=== PATIENT | female | born 1990 | race Caucasian/White ===

== ENCOUNTER 2017-09-02 15:40 | Observation (INO) | payer OTHER ==
[~2017-09-02] VITALS: Ht 160 cm; Wt 92.5 kg
[2017-09-02 15:56] VITALS: BP 130/88
[2017-09-02 17:14] LABS: GLUCOMETER DEV NAME(LOC) 4S 8; GLUCOSE,POINT OF CARE 98 MG/DL (70-110)
[2017-09-02 18:21] VITALS: BP 130/88
== END 2017-09-02 17:35 | disposition home or self-care (01) ==
LOC: 4S 15:40
PROVIDERS: ADMIT Obstetrics & Gynecology; ATTEND Obstetrics & Gynecology
DX: O62.9 Abnormality of forces of labor, unspecified (principal); Z3A.38 38 weeks gestation of pregnancy
CPT/HCPCS: 59025; 82962; G0378

== ENCOUNTER 2017-09-13 12:15 | Inpatient (IN) | payer OTHER ==
[~2017-09-13] VITALS: Ht 160 cm; Wt 93.4 kg
[2017-09-13] MEDS ORDERED: RINGERS SOLUTION,LACTATED 1,000 ML IV PRN (12:33)
[2017-09-13] MEDS ORDERED: OXYTOCIN 30 UNITS/LACT RINGERS 500 ML IV ONE (12:33)
[2017-09-13 12:38] VITALS: BP 132/85
[2017-09-13] MEDS ORDERED: DINOPROSTONE 10 MG VAGINAL SUPPOSITORY VG ONE (12:45)
[2017-09-13] MEDS ORDERED: CITRIC ACID/SODIUM CITRATE 30 ML SOLUTION UDCUP PO PRN (12:45)
[2017-09-13] MEDS ORDERED: METOCLOPRAMIDE HCL 5 MG/ML 2 ML VIAL IVP PRN (12:45)
[2017-09-13 12:56] LABS: BASOPHILS % (AUTO) 0.2 % (0.0-2.0); EOSINOPHILS % (AUTO) 0.4 % (1.0-6.0); HEMATOCRIT 31.5 % (36-46); HEMOGLOBIN 10.9 g/dL (12.0-16.0); LYMPHOCYTES # (AUTO) 1.8 K/uL (1.0-4.8); LYMPHOCYTES % (AUTO) 24.4 % (22.0-44.0); MEAN CORPUSCULAR HEMOGLOBIN 27.3 pg (26.0-34.0); MEAN CORPUSCULAR HGB CONC 34.7 G/dL (31.0-37.0); MEAN CORPUSCULAR VOLUME 79 fL (80-100); MONOCYTES # (AUTO) 0.5 K/uL (0.1-1.0); MONOCYTES % (AUTO) 6.3 % (2.0-9.0); NEUTROPHILS # (AUTO) 5.2 K/uL (1.8-7.7); NEUTROPHILS % (AUTO) 68.7 % (40.0-70.0); PLATELET COUNT (AUTO)-OB 149 K/uL (150-450); RED BLOOD CELL COUNT(AUTO) 3.99 MIL/uL (4.00-5.20); RED CELL DISTRIBUTION WIDTH 14.6 % (11.5-14.5)
[2017-09-13] MEDS: RINGERS SOLUTION,LACTATED 1,000 ML IV SCH ×2 (13:15→19:52)
[2017-09-13 14:59] LABS: HEMOGLOBIN A1C 6.5 % (4.5-6.2)
[2017-09-13 15:07] LABS: ANION GAP 6 mmol/L (8-16); CALCIUM, TOTAL 8.5 mg/dL (8.8-10.5); CARBON DIOXIDE 25 mmol/L (22-29); CHLORIDE 102 mmol/L (98-107); CREATININE 0.74 mg/dL (0.60-1.30); GLOMERULAR FILTR. RATE CALC > 60 mL/min (>60); GLUCOSE,RANDOM 134 mg/dL (70-110); POTASSIUM 4.2 mmol/L (3.5-5.1); SODIUM SERUM 133 mmol/L (136-145); UREA NITROGEN, BLOOD 12 mg/dL (7-18)
[2017-09-13 15:13] LABS: ALANINE AMINOTRANSFERASE 17 U/L (12-78); ALBUMIN 2.2 g/dL (3.4-5.0); ALKALINE PHOSPHATASE 223 U/L (46-116); ASPARTATE AMINOTRANSFERASE 21 U/L (15-37); BILIRUBIN,TOTAL 0.2 mg/dL (0.1-1.0); TOTAL PROTEIN, SERUM 6.5 g/dL (6.4-8.2); URIC ACID 6.8 mg/dL (2.6-7.2)
[2017-09-13] MEDS ORDERED: OXYGEN THERAPY IH SCH (20:00)
[2017-09-13] MEDS: FentaNYL CITRATE-PF 100 MCG/2 ML VIAL IVP PRN ×2 (21:44→21:50)
[2017-09-14] MEDS ORDERED: -PHARMACY NOTE- MISC ONE (00:45)
[2017-09-14] MEDS ORDERED: MISOPROSTOL 25 MCG TABLET VG ONE ×2 (03:00→09:40)
[2017-09-14] MEDS: RINGERS SOLUTION,LACTATED 1,000 ML IV SCH ×4 (03:43→20:50)
[2017-09-14] MEDS ORDERED: OXYTOCIN 30 UNITS/LACT RINGERS 500 ML IV PRN (13:14)
[2017-09-14] MEDS ORDERED: HydrALAZINE HCL 20 MG/ML VIAL IVP PRN (14:30)
[2017-09-14] MEDS ORDERED: ROPIVACAINE HCL/PF 0.2% 100 ML ED ONE (16:47)
[2017-09-15] MEDS ORDERED: ROPIVACAINE HCL/PF 0.2% 100 ML ED ONE ×3 (00:39→13:27)
[2017-09-15] MEDS: RINGERS SOLUTION,LACTATED 1,000 ML IV SCH ×2 (05:18→12:34)
[2017-09-15] MEDS ORDERED: LIDOCAINE HCL/PF 1% 30 ML VIAL ONE (08:41)
[2017-09-15] MEDS ORDERED: AMPICILLIN SODIUM 2 GM/NS 100 ML IV ONE (11:00)
[2017-09-15] MEDS: FentaNYL CITRATE-PF 100 MCG/2 ML VIAL IVP PRN ×2 (13:00→13:15)
[2017-09-15] MEDS ORDERED: NALBUPHINE HCL 10 MG/ML VIAL IVP ONE (13:30)
[2017-09-15] MEDS ORDERED: ACETAMINOPHEN 650 MG RECTAL SUPPOSITORY PR ONE ×2 (13:30)
[2017-09-15] MEDS ORDERED: MORPHINE SULFATE/PF 0.5 MG/ML 10 ML AMP ONE (14:28)
[2017-09-15] MEDS ORDERED: RINGERS SOLUTION,LACTATED 1,000 ML IV ONE (14:28)
[2017-09-15] MEDS ORDERED: FentaNYL CITRATE-PF 100 MCG/2 ML VIAL ONE (14:28)
[2017-09-15] MEDS ORDERED: CeFAZolin 2 GM/DEXTROSE 50 ML IV ONE (14:28)
[2017-09-15] MEDS ORDERED: AMPICILLIN SODIUM 1 GM/NS 50 ML IV SCH (14:30)
[2017-09-15] MEDS ORDERED: GENTAMICIN 80 MG/NACL ISO-OSM 50 ML IV ONE ×2 (14:44)
[2017-09-15] MEDS ORDERED: TRANEXAMIC ACID 1,000 MG in DEXTROSE 5%-WATER 50 ML IV ONE (15:00)
[2017-09-15] MEDS ORDERED: METHYLERGONOVINE MALEATE 0.2 MG/ML VIAL ONE (15:30)
[2017-09-15] MEDS ORDERED: DiphenhydrAMINE HCL 50 MG/ML VIAL IVP PRN ×2 (15:45)
[2017-09-15] MEDS ORDERED: ONDANSETRON HCL 4 MG/2 ML VIAL IVP PRN ×2 (15:45)
[2017-09-15] MEDS ORDERED: NALBUPHINE HCL 10 MG/ML VIAL IVP PRN ×3 (15:45)
[2017-09-15] MEDS ORDERED: MEPERIDINE HCL/PF 25 MG/0.5 ML AMP IVP PRN (15:45)
[2017-09-15] MEDS ORDERED: NALOXONE HCL 0.4 MG/ML VIAL IVP PRN (15:45)
[2017-09-15] MEDS ORDERED: FentaNYL CITRATE-PF 100 MCG/2 ML VIAL IVP PRN ×3 (15:45)
[2017-09-15] MEDS ORDERED: ACETAMINOPHEN/CODEINE 300-30 MG TABLET PO PRN (16:30)
[2017-09-15] MEDS ORDERED: LANOLIN 7 GM OINTMENT TP PRN (16:30)
[2017-09-15] MEDS ORDERED: OXYGEN THERAPY IH SCH ×3 (20:00)
[2017-09-15] MEDS: DEXTROSE 5%-0.45% SODIUM CHL 1,000 ML IV SCH (20:31)
[2017-09-15] MEDS: MAGNESIUM HYDROXIDE SUSPENSION 30 ML UDCUP PO SCH (21:00)
[2017-09-15] MEDS: ACETAMINOPHEN 1000 MG/ISO-OSM 100 ML IV PRN (21:05)
[2017-09-15] MEDS ORDERED: GENTAMICIN SULFATE 160 MG in DEXTROSE 5%-WATER 50 ML IV ONE (21:30)
[2017-09-15] MEDS: AMPICILLIN SODIUM 2 GM/NS 100 ML IV SCH (22:33)
[2017-09-16] MEDS: DEXTROSE 5%-0.45% SODIUM CHL 1,000 ML IV SCH ×2 (01:07→06:55)
[2017-09-16] MEDS: AMPICILLIN SODIUM 2 GM/NS 100 ML IV SCH ×2 (05:00→12:12)
[2017-09-16] MEDS: ACETAMINOPHEN 1000 MG/ISO-OSM 100 ML IV PRN (05:36)
[2017-09-16] MEDS ORDERED: PHENYLEPHRINE HCL 10 MG/ML VIAL IVP ONE (06:01)
[2017-09-16] MEDS ORDERED: ONDANSETRON HCL 4 MG/2 ML VIAL IVP ONE (06:01)
[2017-09-16] MEDS ORDERED: EPHEDrine SULFATE 50 MG/ML VIAL IM ONE (06:01)
[2017-09-16] MEDS ORDERED: OXYTOCIN 10 UNITS/ML VIAL IM ONE (06:01)
[2017-09-16] MEDS ORDERED: 0.9% SODIUM CHLORIDE 10 ML VIAL IVP ONE (06:01)
[2017-09-16] MEDS ORDERED: ALBUTEROL SULFATE 2.5 MG/0.5 ML NEB SOLUTION NEB PRN (07:00)
[2017-09-16] MEDS: MAGNESIUM HYDROXIDE SUSPENSION 30 ML UDCUP PO SCH ×2 (09:00→21:18)
[2017-09-16] MEDS ORDERED: NALBUPHINE HCL 10 MG/ML VIAL IVP ONE (09:00)
[2017-09-16] MEDS: IBUPROFEN 800 MG TABLET PO SCH ×3 (09:35→22:05)
[2017-09-16 18:04] LABS: BASOPHILS % (AUTO) 0.1 % (0.0-2.0); EOSINOPHILS % (AUTO) 0.2 % (1.0-6.0); HEMATOCRIT 25.7 % (36-46); HEMOGLOBIN 9.1 g/dL (12.0-16.0); LYMPHOCYTES # (AUTO) 1.5 K/uL (1.0-4.8); LYMPHOCYTES % (AUTO) 14.3 % (22.0-44.0); MEAN CORPUSCULAR HEMOGLOBIN 27.9 pg (26.0-34.0); MEAN CORPUSCULAR HGB CONC 35.2 G/dL (31.0-37.0); MEAN CORPUSCULAR VOLUME 79 fL (80-100); MONOCYTES # (AUTO) 0.6 K/uL (0.1-1.0); MONOCYTES % (AUTO) 5.8 % (2.0-9.0); NEUTROPHILS # (AUTO) 8.2 K/uL (1.8-7.7); NEUTROPHILS % (AUTO) 79.6 % (40.0-70.0); PLATELET COUNT (AUTO)-OB 109 K/uL (150-450); RED BLOOD CELL COUNT(AUTO) 3.25 MIL/uL (4.00-5.20); RED CELL DISTRIBUTION WIDTH 15.1 % (11.5-14.5)
[2017-09-17] MEDS: ACETAMINOPHEN/CODEINE 300-30 MG TABLET PO PRN ×3 (03:13→16:41)
[2017-09-17] MEDS: IBUPROFEN 800 MG TABLET PO SCH ×4 (03:59→23:04)
[2017-09-17] MEDS: MAGNESIUM HYDROXIDE SUSPENSION 30 ML UDCUP PO SCH ×2 (09:31→21:08)
[2017-09-17] MEDS: SENNA/DOCUSATE SODIUM 187-50 MG TABLET PO SCH (16:40)
[2017-09-18] MEDS: IBUPROFEN 800 MG TABLET PO SCH (05:06)
[2017-09-18] MEDS: ACETAMINOPHEN/CODEINE 300-30 MG TABLET PO PRN (07:52)
[2017-09-18] MEDS: SENNA/DOCUSATE SODIUM 187-50 MG TABLET PO SCH (08:27)
[2017-09-18] MEDS: MAGNESIUM HYDROXIDE SUSPENSION 30 ML UDCUP PO SCH (08:28)
[2017-09-18] MEDS ORDERED: IBUP-2070 PO (09:20)
[2017-09-18] MEDS ORDERED: PERCT PO (09:21)
[2017-09-18] MEDS ORDERED: DSS100 PO (09:23)
[2017-09-18] MEDS ORDERED: PREN-161 PO (09:23)
[2017-09-18] MEDS ORDERED: FERR-89 PO (09:24)
== END 2017-09-18 11:45 | disposition home or self-care (01) | DRG 766 ==
LOC: 4S 12:15 → OBSVTOIN 12:15 → NSY 09-15 19:29 → 4S 09-15 19:29
PROVIDERS: ADMIT Obstetrics & Gynecology; ATTEND Obstetrics & Gynecology
PROC: 10D00Z1 Extraction of Products of Conception, Low, Open Approach (ICD-10-PCS; principal; 2017-09-15)
DX: O62.0 Primary inadequate contractions (principal); O69.81X0 Labor and delivery complicated by cord around neck, without compression, not applicable or unspecified; O77.0 Labor and delivery complicated by meconium in amniotic fluid; O48.0 Post-term pregnancy; O24.429 Gestational diabetes mellitus in childbirth, unspecified control; O16.4 Unspecified maternal hypertension, complicating childbirth; Z37.0 Single live birth; Z3A.40 40 weeks gestation of pregnancy
CPT/HCPCS: 83036; 84550; 86850; 86900; 86901; G0238; J0131; J0290; J0360; J0690; J1580; J2210; J2274; J2300; J2370; J2405; J2590; J2765; J2795; J3010; J3490; J7060; J7120